=== PATIENT | female | born 2000 | race Caucasian/White ===

== ENCOUNTER 2022-01-24 13:22 | Outpatient (REF) | payer MEDICAID, SELFPAY ==
--- NOTE | ~2022-01-24 | MR_ITS ---
EXAMINATION: MR ANGIOGRAPHY BRAIN WITHOUT CONTRAST CLINICAL INFORMATION: Family history of brain aneurysms. Headaches. COMPARISON: None TECHNIQUE: 3-D [id number] MR angiography of the [place] acquired. Slightly limited study with motion artifacts. FINDINGS: The vertebrobasilar vasculature is normal. The posterior cerebral arteries are widely patent. The internal carotid arteries are of normal caliber bilaterally. The RACHEL vascular complexes are normal. The middle cerebral arteries demonstrate normal flow-related signal. No aneurysm or vascular malformation is identified. MR/MR angio head wo con IMPRESSION: Normal slightly limited MRA of the head with motion artifacts.
== END 2022-01-24 13:23 | disposition home or self-care (01) ==
LOC: HO.MRI 13:22
PROVIDERS: Visit Provider Internal Medicine
DX: Z82.49 Family history of ischemic heart disease and other diseases of the circulatory system (principal)
CPT/HCPCS: 70544

== ENCOUNTER 2022-03-23 14:00 | Outpatient (RCR) | payer MEDICAID, SELFPAY | END 2022-04-18 15:04 | disposition home or self-care (01) | LOC: HO.PT 14:00 | PROVIDERS: PCP Internal Medicine; Visit Provider Internal Medicine | DX: M54.9 Dorsalgia, unspecified (principal) | CPT/HCPCS: 97110; 97161; 97535 ==